=== PATIENT | female | born 1950 | race Caucasian/White ===

== ENCOUNTER → 2017-01-10 | Outpatient (CLI) | payer BC, MEDICARE ==
--- NOTE | 2017-01-10 15:00 | PCVCIMAG ---
APPROVED REPORT Exam: Nuclear Stress Test Indication: Chest Pain, Dyspnea, Pericardial Pain Patient Location: Out Patient Stress Nurse: Brandy Patel RN, Chelsey Leon RN [place] Tech:Álvaro Broussard NMTCB Ht: 5 ft 2 in Wt: 137 lbs BSA: 1.63 m2 HR: 63 bpm BP: 123/80 mmHg BMI: 25.0 Rhythm: NSR Medical History Medical History: Age Medications: No cardiac meds Allergies: Codeine, PCN, Sulfa Pretest Chest Pain Characteristics: No chest pain Exercise History: Physically active NM EXAM: Myocardial Perfusion REST/STRESS Imaging Protocol: Rest Tc-99m/Stress Tc-99m 1 day Resting Data Rest SPECT myocardial perfusion imaging was performed in supine position 45 minutes following the intravenous injection of 9.9 mCi of Tc-99m Sestamibi. Time of rest injection: 1005 Date: 01/10/2017 Exercise Stress At peak stress, the patient was injected intravenously with 28.4mCi of Tc-99m Sestamibi. Time of stress injection: 1150 Date: 01/10/2017 Gated Stress SPECT was performed 45 minutes after stress injection. The images were gated to evaluate regional wall motion and calculate left ventricular ejection fraction. Study Data Post stress, the left ventricular ejection was 77%.. SSS: 0 SRS: 20 SDS: 0 TID = 0.59. Perfusion Normal perfusion on both the stress and rest images. Wall Motion Normal left ventricular wall motion. Nuclear Conclusion 1. LOW RISK STUDY Interpreted by: Isa Concepcion MD Electronically Approved: 01/10/2017 14:58:27 Stress Test Details Stress Test: Exercise stress testing was performed using a Brandon protocol. HR Resting HR: 63 bpmMax Heart Rate (APMHR): 155 bpm Max HR Achieved: 151 bpmTarget HR (85% APMHR): 131 bpm % of APMHR: 97 Recovery HR: 82 bpm BP Resting BP: 123/80 mmHg Max BP: 148/80 mmHg ECG Resting ECG: Sinus Rhythm Stress ECG: Sinus Tachycardia Recovery ECG: Sinus Rhythm Recovery ST Change: None, Horizontal ST depression Clinical Reason for Termination: Fatigue, Dyspnea Stress Symptoms: Dyspnea, Fatigue, Exercise duration: 11 min 15 sec Exercise capacity: 13.40 METs Nurse Comments Symptoms resolved with rest Stress ECG Conclusion 1. SUBJECTIVELY NEGATIVE FOR ISCHEMIA 2. ELECTROCARDIOGRAPHICALLY NEGATIVE FOR ISCHEMIA 3. SATISFACTORY FUNCTIONAL CAPACITY <Conclusion> 1. SUBJECTIVELY NEGATIVE FOR ISCHEMIA 2. ELECTROCARDIOGRAPHICALLY NEGATIVE FOR ISCHEMIA 3. SATISFACTORY FUNCTIONAL CAPACITY
--- NOTE | 2017-01-10 15:03 | PCVCIMAG ---
APPROVED REPORT Study performed: 01/10/2017 09:27:29 EXAM: Comprehensive 2D, Doppler, and color-flow Echocardiogram Patient Location: Echo lab Status: routine BSA: 1.62 HR: 57 bpmBP: 100/70 mmHg Rhythm: NSR Other Information Study Quality: Good Indications Palpitations 2D Dimensions LVEF(%): 68.11 (>50%) IVSd: 8.26 (7-11mm)LVOT Diam: 17.13 (18-24mm) LVDd: 35.18 mm PWd: 8.19 (7-11mm)Ascending Ao: 36.72 (22-36mm) LVDs: 22.12 (25-40mm) Left Atrium: 24.04 (27-40mm) Aortic Root: 30.26 mm LV Single Plane 2CH: 66.24 %Grady's LVEF: 68.11 % Volumes Left Atrial Volume (Systole) Single Plane 4CH: 24.72 mLSingle Plane 2CH: 28.27 mL Aortic Valve AoV Peak Codey.: 1.50 m/s AO Peak Gr.: 8.95 mmHgLVOT Max P.69 mmHg LVOT Max V: 1.29 m/s BRIANDA Vmax: 1.99 cm2 Mitral Valve E/A Ratio: 1.0 MV Decel. Time: 240.14 ms MV E Max Codey.: 0.78 m/s MV A Codey.: 0.77 m/s IVRT: 86.51 ms TDI E/Lateral E': 5.57E/Medial E': 11.14 Medial E' Codey.: 0.07 m/s Lateral E' Codey.: 0.14 m/s Pulmonary Valve PV Peak Gr.: 2.07 mmHg Pulmonary Vein P Vein S: 0.53 m/sP Vein A: 0.42 m/s P Vein D: 0.44 m/sP Vein A Dur.: 72.7 msec P Vein S/D Ratio: 1.20 Tricuspid Valve TR Peak Codey.: 2.39 m/s TR Peak Gr.: 22.94 mmHg Left Ventricle The left ventricle is normal size. There is normal LV segmental wall motion. There is normal left ventricular wall thickness. Left ventricular systolic function is normal. The left ventricular ejection fraction is within the normal range. LVEF is >55%. The left ventricular diastolic function is normal. Right Ventricle The right ventricle is normal size. The right ventricular systolic function is normal. Atria The left atrium size is normal. The right atrium size is normal. Aortic Valve The aortic valve is normal in structure. No aortic regurgitation is present. There is no aortic valvular stenosis. Mitral Valve The mitral valve is normal in structure. There is no mitral valve regurgitation noted. No evidence of mitral valve stenosis. Tricuspid Valve The tricuspid valve is normal in structure. Trace tricuspid regurgitation. Pulmonary artery pressue is 30mmhg. Pulmonic Valve The pulmonary valve is normal in structure. There is no pulmonic valvular regurgitation. Great Vessels The aortic root is normal in size. IVC is normal in size and collapses with >50% inspiration Pericardium There is no pericardial effusion. <Conclusion> The left ventricle is normal size. LVEF is >55%. The aortic valve is normal in structure. The mitral valve is normal in structure. The tricuspid valve is normal in structure. Trace tricuspid regurgitation. Pulmonary artery pressue is 30mmhg. The pulmonary valve is normal in structure. The aortic root is normal in size.
== END | disposition home or self-care (01) ==
LOC: PCVCIMAG 09:29
PROVIDERS: ATTEND Internal Medicine
DX: R00.2 Palpitations (principal); R07.9 Chest pain, unspecified; R06.00 Dyspnea, unspecified; R07.2 Precordial pain
CPT/HCPCS: 78452; 93017; 93306; A9500

== ENCOUNTER → 2017-02-14 | Outpatient (CLI) | payer BC, MEDICARE | END | disposition home or self-care (01) | LOC: PCVCCLINIC 11:38 | PROVIDERS: ATTEND Internal Medicine | DX: R00.2 Palpitations (principal); Z79.899 Other long term (current) drug therapy; Z87.891 Personal history of nicotine dependence | CPT/HCPCS: 93005; G0463 ==

== ENCOUNTER → 2018-03-05 | Outpatient (CLI) | payer OTHER | END | disposition home or self-care (01) | LOC: PCVCCLINIC 15:14 | PROVIDERS: ATTEND Internal Medicine | DX: E78.5 Hyperlipidemia, unspecified (principal); R09.89 Other specified symptoms and signs involving the circulatory and respiratory systems; Z88.2 Allergy status to sulfonamides; Z88.5 Allergy status to narcotic agent; Z87.891 Personal history of nicotine dependence; Z72.89 Other problems related to lifestyle; Z87.898 Personal history of other specified conditions | CPT/HCPCS: 36415; 80061 ==

== ENCOUNTER → 2018-03-05 | Outpatient (CLI) | payer OTHER | END | disposition home or self-care (01) | LOC: PCVCCLINIC 16:39 | PROVIDERS: ATTEND Internal Medicine | DX: E78.5 Hyperlipidemia, unspecified (principal); R09.89 Other specified symptoms and signs involving the circulatory and respiratory systems; Z87.898 Personal history of other specified conditions; Z88.5 Allergy status to narcotic agent; Z88.2 Allergy status to sulfonamides; Z87.891 Personal history of nicotine dependence; Z72.89 Other problems related to lifestyle | CPT/HCPCS: 36415; 80061 ==

== ENCOUNTER → 2018-03-06 | Outpatient (CLI) | payer OTHER ==
--- NOTE | 2018-03-06 16:38 | PCVCIMAG ---
APPROVED REPORT Laterality: Bilateral Indications Bruit Doppler Spectral Velocity Analysis PSV / EDVPSV / EDV ECA (R) 44 / 8 cm/sECA (L) 52 / 11 cm/s dICA (R) 63 / 26 cm/sdICA (L) 55 / 21 cm/s Sae (R) 90 / 33 cm/smICA (L) 62 / 26 cm/s pICA (R) 67 / 22 cm/spICA (L) 60 / 17 cm/s Bulb (R) 76 / 22 cm/sBulb (L) 74 / 18 cm/s dCCA (R) 73 / 23 cm/sdCCA (L) 82 / 21 cm/s mCCA (R) 89 / 20 cm/smCCA (L) 109 / 30 cm/s Vert (R) 56 / 15 cm/sVert (L) 49 / 16 cm/s ICA/CCA 1.23ICA/CCA 0.76 Findings The right carotid bulb has minimal plaque. The right proximal internal carotid artery shows no significant stenosis. The right common carotid artery shows no significant stenosis. The right external carotid artery shows no significant stenosis. The left carotid bulb has no significant plaque. The left proximal internal carotid artery shows no significant stenosis. The left common carotid artery shows no significant stenosis. The left external carotid artery shows no significant stenosis. Conclusion 1. Minimal plaquing without significant stenosis bilaterally 2. Antegrade vertebral flow
== END | disposition home or self-care (01) ==
LOC: PCVCIMAG 15:43
PROVIDERS: ATTEND Internal Medicine
DX: I65.23 Occlusion and stenosis of bilateral carotid arteries (principal); R09.89 Other specified symptoms and signs involving the circulatory and respiratory systems
CPT/HCPCS: 93880

== ENCOUNTER → 2019-01-14 | Outpatient (CLI) | payer OTHER | END | disposition home or self-care (01) | LOC: PCVCCLINIC 11:00 | PROVIDERS: ATTEND Internal Medicine | DX: I71.2 Thoracic aortic aneurysm, without rupture (principal); E78.5 Hyperlipidemia, unspecified; Z87.891 Personal history of nicotine dependence; Z88.5 Allergy status to narcotic agent; Z88.1 Allergy status to other antibiotic agents | CPT/HCPCS: 36415; 80061; 93005; G0463 ==